=== PATIENT | male | born 1955 | race Caucasian/White ===

== ENCOUNTER → 2021-10-03 | Outpatient (CLI) | payer MEDICARE, OTHER ==
--- NOTE | 2021-10-04 17:44 | CARD ---
MR#: [id number] Date of Study: 10/03/2021 Ordering Physician: ALVERTO MACARIO, Referring Physician: ALVERTO MACARIO, Tech: Ana Perez RDCS APPROVED REPORT EXAM: Two-dimensional and M-mode echocardiogram with Doppler and color Doppler. Other Information Quality : GoodHR: 107bpm Rhythm : Tachycardia INDICATION Pericardial Effusion Post Covid pneumonia 2D DIMENSIONS RVDd3.4 (2.9-3.5cm)Left Atrium(2D)4.7 (1.6-4.0cm) IVSd1.4 (0.7-1.1cm)Aortic Root(2D)3.5 (2.0-3.7cm) LVDd4.8 (3.9-5.9cm)LVOT Diameter2.5 (1.8-2.4cm) PWd1.4 (0.7-1.1cm)LVDs3.5 (2.5-4.0cm) FS (%) 27.9 %SV58.8 ml M-Mode DIMENSIONS Aortic Root1.56 (2.2-3.7cm) Aortic Valve AoV Peak Hardeep.125.1cm/sAoV VTI19.5cm AO Peak GR.6.3mmHgLVOT Peak Hardeep.87.9cm/s AO Mean GR.4mmHgAVA (VMAX)3.40cm2 Mitral Valve MV E Kprgrdoz25.6cm/sMV DECEL [id number] MV A Cmvdhdbn01.3cm/sE/A Ratio0.6 Pulmonary Valve PV Peak Ixtdiofa99.9cm/s Tricuspid Valve TR P. [id number]/sTR Peak Gr.25mmHg Pulmonary Vein S1 Elvelsbr30.8cm/sD2 Lmbwapwx32.4cm/s PVa [id number] LEFT VENTRICLE The left ventricle is normal size. There is mild concentric left ventricular hypertrophy. The left ve ntricular systolic function is normal and the ejection fraction is within normal range. LV ejection f raction of 50 to 55% There is normal LV segmental wall motion. The left ventricular diastolic functio n and filling is normal for age. No left ventricle thrombus noted on this study. There is no ventricu lar septal defect visualized. There is no left ventricular aneurysm. There is no mass noted in the le ft ventricle. RIGHT VENTRICLE The right ventricle is normal size. There is normal right ventricular wall thickness. The right ventr icular systolic function is normal. ATRIA The left atrium size is normal. The right atrium size is normal. The interatrial septum is intact wit h no evidence for an atrial septal defect or patent foramen ovale as noted on 2-D or Doppler imaging. AORTIC VALVE The aortic valve is normal in structure and function. Doppler and Color Flow revealed no significant aortic regurgitation. There is no significant aortic valvular stenosis. There is no aortic valvular v egetation. MITRAL VALVE The mitral valve is normal in structure and function. There is no evidence of mitral valve prolapse. There is no mitral valve stenosis. Doppler and Color Flow revealed no mitral valve regurgitation note d. TRICUSPID VALVE The tricuspid valve is normal in structure and function. Doppler and Color Flow revealed trace to mil d tricuspid regurgitation. The pulmonary artery systolic pressure is estimated at less than 30 mmHg. There is no tricuspid valve prolapse or vegetation. There is no tricuspid valve stenosis. PULMONIC VALVE The pulmonary valve is normal in structure and function. Doppler and Color Flow revealed no pulmonic valvular regurgitation. There is no pulmonic valvular stenosis. GREAT VESSELS The aortic root is normal in size. The ascending aorta is mildly dilated at 4.2 cm. The IVC is normal in size and collapses >50% with inspiration. PERICARDIAL EFFUSION There is a trace to small pericardial effusion without hemodynamic significance. Critical Notification Critical Value: No <Conclusion> The left ventricle is normal size. The left ventricular systolic function is normal and the ejection fraction is within normal range. LV ejection fraction of 50 to 55% There is mild concentric left ventricular hypertrophy. Doppler and Color Flow revealed no significant aortic regurgitation. There is no significant aortic valvular stenosis. Doppler and Color Flow revealed no mitral valve regurgitation noted. Doppler and Color Flow revealed trace to mild tricuspid regurgitation. The pulmonary artery systolic pressure is estimated at less than 30 mmHg. The ascending aorta is mildly dilated at 4.2 cm. There is a trace to small pericardial effusion without hemodynamic significance. Signed by : Clive Matias MD Electronically Approved : 10/04/2021 17:43:53
== END ==
LOC: ECHO 10:41
PROVIDERS: ATTEND Family Medicine
DX: Z09 Encounter for follow-up examination after completed treatment for conditions other than malignant neoplasm (principal); I36.1 Nonrheumatic tricuspid (valve) insufficiency; I51.7 Cardiomegaly; I31.3 Pericardial effusion (noninflammatory)
CPT/HCPCS: 93306; C8929